=== PATIENT | female | born 1990 | race Caucasian/White ===

== ENCOUNTER 2018-11-26 07:41 | Day surgery (SDC) | payer BC ==
[~2018-11-26] VITALS: Ht 175.3 cm; Wt 64.9 kg
[~2018-11-26 07:41] MED LIST: B COCAP4 PO; IBUP80TA PO; LIDOCAINE 1% MDV 20ML VIAL SQ PRN; LR 1,000 ML IV ONE; MIRE1IUD IU; RIZA10TA4 PO; TOPI50TA9 PO
[2018-11-26 08:10] LABS: URINE PREG TEST NEGATIVE (NEGATIVE)
[2018-11-26] MEDS ORDERED: ceFAZolin SOD 1 GM in D5W MINI-BAG PLUS 50 ML IV ONE (08:15)
[2018-11-26] MEDS ORDERED: LIDOCAINE 2% W/EPIN INJ 20ML **PRES FREE As Ordered ONE (08:22)
[2018-11-26] MEDS ORDERED: LIDOCAINE W/EPINEPHRINE 1% 20ML VIAL As Ordered ONE (08:22)
[2018-11-26] MEDS ORDERED: BACITRACIN OINT 30GM As Ordered ONE (08:22)
[2018-11-26] MEDS ORDERED: PROPOFOL 200 MG/20 ML VIAL As Ordered ONE (08:45)
[2018-11-26] MEDS ORDERED: LIDOCAINE 2% INJ 100 MG/5 ML SDV (FOR ANES.) As Ordered ONE (08:45)
[2018-11-26] MEDS ORDERED: KETOROLAC 60 MG/2 ML VIAL (J1885) As Ordered ONE (08:45)
[2018-11-26] MEDS ORDERED: MIDAZOLAM INJ 2 MG/2 ML VIAL (J2250) As Ordered ONE (08:45)
[2018-11-26] MEDS ORDERED: fentaNYL 100 MCG/2 ML INJECTION (J3010) As Ordered ONE (08:45)
[2018-11-26] MEDS ORDERED: dexameTHASONE 4 MG/ML 1ML VIAL (J1100) As Ordered ONE (08:45)
[2018-11-26] MEDS ORDERED: METOCLOPRAMIDE INJ 10MG/2ML VIAL (J2765) As Ordered ONE (08:45)
[2018-11-26] MEDS ORDERED: ONDANSETRON 4MG/2ML VIAL (J2405) As Ordered ONE (08:45)
--- NOTE | 2018-11-26 09:16 | POST-OPPD ---
Postoperative Procedure Note Date Of Procedure: November 26, 2018 PREOPERATIVE DIAGNOSIS: Left shoulder mass POSTOPERATIVE DIAGNOSIS: same FINDINGS: 2 cm round cyst PROCEDURE: Excision left shoulder mass SURGEON: Dr Perkins ANESTHESIA: Local with sedation SPECIMENS: left shoulder mass ESTIMATED BLOOD LOSS: 1 cc REPLACED: none DRAINS: none COMPLICATIONS: none POSTOPERATIVE CONDITION: stable WESLY PERKINS DO November 26, 2018 09:16
[2018-11-26] MEDS ORDERED: FLUC10TA PO (09:20)
[2018-11-26 09:50] VITALS: BP 105/58
--- NOTE | 2018-11-26 15:33 | RO ---
DATE OF PROCEDURE: 11/26/2018 PREPROCEDURE DIAGNOSIS: Left shoulder mass. POSTPROCEDURE DIAGNOSIS: Left shoulder mass. PROCEDURE: Excisional left shoulder mass. SURGEON: Dr. Franco ANESTHESIA: Local with sedation. SPECIMEN: Left shoulder mass. BLOOD LOSS: 1 mL. REPLACEMENT: None. DRAINS: None. DESCRIPTION OF PROCEDURE: This is a 28-year-old female who developed a 2 cm round mass on her left posterior shoulder closer to the posterior neck. It has been causing her issues, she has had it more than 2 years. She wishes to have it excised. All risks and benefits were discussed with the patient and she is ready to proceed. On the day of surgery she was marked in preoperative holding area to identify the lesion. She was presented to the operating room and placed in the lateral position with left side up. All the bony prominences protected. Sedation is given to the patient. She was prepped and draped in the usual sterile fashion. 2% lidocaine with epinephrine was used a field block. After the numbing effect of the lidocaine was ensured the horizontal incision was carried out to the middle of the most prominent part of the mass. Careful dissection was done and the capsule identified which appears to be a cyst with white material/thick material inside. The cyst was carefully dissected with blunt dissection and it was shelled out in all entirety. The wound was irrigated with bacitracin irrigation solution and then closed in layers with interrupted #4-0 Vicryl sutures and #4-0 Monocryl sutures. Steri-Strips were applied with a pressure dressing. Patient tolerated procedure well. Transferred to the recovery room in stable condition. TORO
== END 2018-11-26 10:10 | disposition home or self-care (01) ==
LOC: M SDC 07:41
PROVIDERS: ATTEND Plastic Surgery Surgery of the Hand
DX: L72.0 Epidermal cyst (principal); F41.9 Anxiety disorder, unspecified; J45.909 Unspecified asthma, uncomplicated; L30.9 Dermatitis, unspecified; G43.909 Migraine, unspecified, not intractable, without status migrainosus; M51.27 Other intervertebral disc displacement, lumbosacral region; Z97.5 Presence of (intrauterine) contraceptive device; Z87.820 Personal history of traumatic brain injury
CPT/HCPCS: 11402; 84703; 88307; J0690; J1100; J1885; J2250; J2405; J2765; J3010